=== PATIENT | male | born 1960 | race Caucasian/White ===

== ENCOUNTER 2016-10-19 18:56 | Inpatient (IN) | payer BC, OTHER ==
[~2016-10-19] VITALS: Ht 179.1 cm; Wt 106.7 kg
--- NOTE | 2016-10-19 19:06 | ED.ADGEN ---
Adult General Chief Complaint Chief Complaint " I ve been feeling off.. and I had fever and chills.. up to 101.. Tuesday.. but then I started this severe pain in my right wrist and hand... and my Lt ankle... 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 Patient denies any recent travel.. Has not had previous inflammatory rheumatological problems. Denies any recent trauma to right wrist or left ankle. Pt. does have extensive medical history including history of splenectomy. Patient also has a history of [place] fever. Patient follows with Dr. Martinez as primary care. Review of Systems Review of Systems Constitutional: History of fever or chills [] Eyes: Denies change in visual acuity, redness, or eye pain [] HENT: Denies nasal congestion or sore throat [] Respiratory: Denies cough or shortness of breath [] Cardiovascular: No additional information not addressed in HPI [] GI: Denies abdominal pain, nausea, vomiting, bloody stools or diarrhea [] : Denies dysuria or hematuria [] Musculoskeletal: Complaints of severe right wrist and left ankle pain and edema. Integument: Denies rash or skin lesions [] Neurologic: Denies headache, focal weakness or sensory changes [] Endocrine: Denies polyuria or polydipsia [] Family History Family History Noncontributory Current Medications Current Medications Current Medications Medications (Trade) Dose Ordered Sig/Mey Start Time Stop Time Status Last Admin Dose Admin Ceftriaxone Sodium/Sodium Chloride (Rocephin/Iv Sodium Chloride 0.9% 100ml) 100 ml @ 200 mls/hr 1X ONCE 10/19/16 21:30 10/19/16 21:59 DC 10/19/16 21:51 200 MLS/HR Ceftriaxone Sodium (Rocephin) 2 gm STK-MED ONCE 10/19/16 21:48 10/19/16 21:49 DC Ketorolac Tromethamine 30 mg 30 mg 1X ONCE 10/19/16 19:45 10/19/16 19:46 DC 10/19/16 19:56 30 MG Lactated Ringer's 1,000 ml @ 1,000 mls/hr 1X ONCE 10/19/16 21:15 10/19/16 22:14 DC 10/19/16 21:00 1,000 MLS/HR Lactated Ringer's (Iv Lactated Ringers) 1,000 ml @ 1,000 mls/hr Q1H 10/19/16 19:30 10/19/16 19:57 1,000 MLS/HR Methylprednisolone Sodium Succinate (Solu-Medrol 125mg Vial) 125 mg 1X ONCE 10/19/16 21:30 10/19/16 21:31 DC 10/19/16 21:51 125 MG Morphine Sulfate 5 mg 5 mg 1X ONCE 10/19/16 22:15 10/19/16 22:16 DC 10/19/16 22:41 5 MG Sodium Chloride (Iv Sodium Chloride 0.9% 100ml) 100 ml @ As Directed STK-MED ONCE 10/19/16 21:48 10/19/16 21:49 DC Allergies Allergies Allergies Coded Allergies Type Severity Reaction Last Updated Verified DYLAN Inhibitors Allergy Unknown 10/19/16 Yes meperidine Allergy Unknown 10/19/16 Yes Physical Exam Physical Exam Constitutional: in acute distress, non-toxic appearance. [] HENT: Normocephalic, atraumatic, bilateral external ears normal, oropharynx moist, no oral exudates, nose normal. [] Eyes: PERRLA, EOMI, conjunctiva normal, no discharge. Glasses. Neck: Normal range of motion, no tenderness, supple, no stridor. [] Cardiovascular:Tachycardia Heart rate regular rhythm, no murmur [] Lungs & Thorax: Bilateral breath sounds equal at apexes on auscultation [] Abdomen: Bowel sounds normal, soft, no tenderness, no masses, no pulsatile masses. Old surgery scars. Skin: Warm, dry, no erythema, no rash. [] Back: No tenderness, no CVA tenderness. [] Extremities: Right wrist , Lt. ankle tenderness and edema, no cyanosis, no clubbing, ROM intact, Neurologic: Alert and oriented X 3, normal motor function, normal sensory function, no focal deficits noted. [] Psychologic: Affect normal, judgement normal, mood normal. [] Current Patient Data Vital Signs Vital Signs Date Time Temp Pulse Resp B/P Pulse Ox O2 Delivery O2 Flow Rate FiO2 10/19/16 18:56 97.5 100 18 97 Room Air Lab Results Laboratory Tests Test 10/19/16 19:40 10/19/16 20:40 White Blood Count 16.3x10^3/uL (4.0-11.0) H Red Blood Count 4.68x10^6/uL (4.30-5.70) Hemoglobin 14.9g/dL (13.0-17.5) Hematocrit 45.1% (39.0-53.0) Mean Corpuscular Volume 96fL (79-100) Mean Corpuscular Hemoglobin 32pg (25-35) Mean Corpuscular Hemoglobin Concent 33g/dL (31-37) Red Cell Distribution Width 13.8% (11.5-14.5) Platelet Count 178x10^3/uL (140-400) Neutrophils (%) (Auto) 77% (31-73) H Lymphocytes (%) (Auto) 14% (24-48) L Monocytes (%) (Auto) 8% (0-9) Eosinophils (%) (Auto) 0% (0-3) Basophils (%) (Auto) 1% (0-3) Neutrophils # (Auto) 12.5x10^3uL (1.8-7.7) H Lymphocytes # (Auto) 2.3x10^3/uL (1.0-4.8) Monocytes # (Auto) 1.4x10^3/uL (0.0-1.1) H Eosinophils # (Auto) 0.0x10^3/uL (0.0-0.7) Basophils # (Auto) 0.1x10^3/uL (0.0-0.2) Segmented Neutrophils % 81% (35-66) H Band Neutrophils % 1% (0-9) Lymphocytes % 9% (24-48) L Monocytes % 8% (0-10) Eosinophils % 0% (0-5) Basophils % % (0-3) Blast Cells % (Manual) 1% (0-0) H Nucleated Red Blood Cells 1 Platelet Estimate Adequate (ADEQUATE) Large Platelets Occ Polychromasia Slight Anisocytosis Slight Ovalocytes Occ Crenated Cell Present Erythrocyte Sedimentation Rate 83 (0-15) H Prothrombin Time 11.3SEC (9.4-11.4) Prothrombin Time INR 1.1 (0.9-1.1) PTT 25SEC (23-33) Sodium Level 129mmol/L (136-145) L Potassium Level 3.9mmol/L (3.5-5.1) Chloride Level 94mmol/L (98-107) L Carbon Dioxide Level 24mmol/L (21-32) Anion Gap 11 (6-14) Blood Urea Nitrogen 22mg/dL (8-26) Creatinine 1.2mg/dL (0.7-1.3) Estimated GFR (Cockcroft-Gault) 62.4 Glucose Level 359mg/dL (70-99) H Uric Acid 4.2mg/dL (3.5-7.2) Calcium Level 8.9mg/dL (8.5-10.1) Magnesium Level 1.8mg/dL (1.8-2.4) Total Bilirubin 0.6mg/dL (0.2-1.0) Direct Bilirubin 0.2mg/dL (0.0-0.2) Aspartate Amino Transferase (AST) 34U/L (15-37) Alanine Aminotransferase (ALT) 57U/L (16-63) Alkaline Phosphatase 149U/L (46-116) H Creatine Kinase 20U/L (39-308) L Creatine Kinase MB (Mass) < 0.5ng/mL (0.0-3.6) Creatine Kinase MB Relative Index 2.5% (0-4) Troponin I Quantitative < 0.017ng/mL (0-0.055) C-Reactive Protein 272.4mg/L (0-3.3) H CG-Dlz-L-Type Natriuretic Peptide 592pg/mL (0-124) H Total Protein 9.0g/dL (6.4-8.2) H Albumin 3.0g/dL (3.4-5.0) L Lipase 83U/L (73-393) Urine Collection Type Unknown Urine Color Martha Urine Clarity Clear Urine pH 5.5 Urine Specific Cordell 1.010 Urine Protein 30 mg/dl (NEG-TRACE) Urine Glucose (UA) >=1000mg/dL (NEG) Urine Ketones (Stick) 40mg/dL (NEG) Urine Blood Trace (NEG) Urine Nitrite Neg (NEG) Urine Bilirubin Neg (NEG) Urine Urobilinogen Dipstick 1mg/dL (0.2 mg/dL) Urine Leukocyte Esterase Neg (NEG) Urine RBC 1-2/HPF (0-2) Urine WBC 1-4/HPF (0-4) Urine Squamous Epithelial Cells Occ/LPF Urine Amorphous Sediment Present/HPF Urine Bacteria 0/HPF (0-FEW) Urine Hyaline Casts Occ/HPF Urine Mucus Slight/LPF EKG EKG [] Radiology/Procedures Radiology/Procedures My interpretation of Rt. wrist and Lt. ankle films show degenerative joint changes and edema but no obvious fracture. Course & Med Decision Making Course & Med Decision Making Pertinent Labs and Imaging studies reviewed. (See chart for details). Discussed presentation, testing and treatment plan with , will admit for further eval. and tx. [] Final Impression Final Impression 1. SIRs 2. Leukocytosis 3. Hyponatremia 4. Moderate malnutrition 5. Elevated CRP and Sed. Rate [] 6. DM Problems: Dragon Disclaimer Dragon Disclaimer This electronic medical record was generated, in whole or in part, using a voice recognition dictation system. ANEUDY ZHU MD Oct 19, 2016 19:06
[2016-10-19] MEDS ORDERED: IV RINGERS SOLUTION,LACTATED 1,000 ML IV SCH (19:30)
[2016-10-19] MEDS ORDERED: KETOROLAC 30 MG/ML VIAL. IV ONE (19:45)
[2016-10-19 20:20] LABS: BASO # 0.1 x10^3/uL (0.0-0.2); BASO % 1 % (0-3); EOS % 0 % (0-3); HEMATOCRIT 45.1 % (39.0-53.0); HEMOGLOBIN 14.9 g/dL (13.0-17.5); LYMPH # 2.3 x10^3/uL (1.0-4.8); LYMPH % 14 % (24-48); MEAN CORPUSCULAR HEMOGLOBIN 32 pg (25-35); MEAN CORPUSCULAR HGB CONC 33 g/dL (31-37); MEAN CORPUSCULAR VOLUME 96 fL (79-100); MONO # 1.4 x10^3/uL (0.0-1.1); MONO % 8 % (0-9); NEUT # 12.5 x10^3uL (1.8-7.7); NEUT % 77 % (31-73); PLATELET COUNT 178 x10^3/uL (140-400); RED BLOOD COUNT 4.68 x10^6/uL (4.30-5.70); RED CELL DISTRIBUTION WIDTH 13.8 % (11.5-14.5); WHITE BLOOD COUNT 16.3 x10^3/uL (4.0-11.0)
[2016-10-19 20:49] LABS: ALK PHOS 149 U/L (46-116); ALT (SGPT) 57 U/L (16-63); ANION GAP 11 (6-14); AST (SGOT) 34 U/L (15-37); BLOOD UREA NITROGEN 22 mg/dL (8-26); CALCIUM 8.9 mg/dL (8.5-10.1); CARBON DIOXIDE 24 mmol/L (21-32); CHLORIDE 94 mmol/L (98-107); CREATINE KINASE 20 U/L (39-308); CREATININE 1.2 mg/dL (0.7-1.3); DIRECT BILIRUBIN 0.2 mg/dL (0.0-0.2); GFR 62.4; GLUCOSE 359 mg/dL (70-99); LIPASE 83 U/L (73-393); MAGNESIUM 1.8 mg/dL (1.8-2.4); POTASSIUM 3.9 mmol/L (3.5-5.1); SODIUM 129 mmol/L (136-145); TOTAL BILIRUBIN 0.6 mg/dL (0.2-1.0); URIC ACID 4.6 mg/dL (3.5-7.2)
[2016-10-19] MEDS: IV RINGERS SOLUTION,LACTATED 1,000 ML IV ONE ×2 (20:57→21:00)
[2016-10-19 21:05] LABS: C REACTIVE PROTEIN 272.4 mg/L (0-3.3)
[2016-10-19 21:15] LABS: CLARITY,URINE CLEAR; COLOR,URINE AMBER
[2016-10-19] MEDS ORDERED: IV RINGERS SOLUTION,LACTATED 1,000 ML IV ONE (21:15)
[2016-10-19 21:16] LABS: AMORPHOUS SEDIMENT,UR PRESENT /HPF; BACTERIA,URINE 0 /HPF (0-FEW); BILIRUBIN,URINE NEG (NEG); GLUCOSE,URINE >=1000 mg/dL (NEG); HYALINE CASTS, URINE OCC /HPF; NITRITE,URINE NEG (NEG); SQUAMOUS EPITHELIAL CELL,UR OCC /LPF; UROBILINOGEN,URINE 1 mg/dL (0.2 mg/dL)
[2016-10-19] MEDS ORDERED: CEFTRIAXONE SODIUM 2 GM in IV NORMAL SALINE 100ML 100 ML IV ONE (21:30)
[2016-10-19] MEDS ORDERED: methylPREDNISolone SOD SUCC PF 125 MG/2 ML VIAL. IV ONE (21:30)
[2016-10-19] MEDS ORDERED: CEFTRIAXONE SODIUM 2 GM VIAL IV ONE (21:48)
[2016-10-19] MEDS ORDERED: IV NORMAL SALINE 100ML 100 ML ONE (21:48)
[2016-10-19 22:08] LABS: SEDIMENTATION RATE 83 (0-15)
[2016-10-19] MEDS ORDERED: MORPHINE SULFATE 5 MG/ML SYRINGE. IV ONE (22:15)
[2016-10-19 22:26] LABS: % BLASTS 1 % (0-0); NUCLEATED RBC 1
[2016-10-19 22:27] LABS: % BANDS 1 % (0-9)
[2016-10-19 22:29] LABS: % EOS 0 % (0-5); % SEGS 81 % (35-66)
[2016-10-19] MEDS ORDERED: ONDANSETRON PF 4 MG/2 ML VIAL. IV PRN (22:30)
[2016-10-19 22:31] LABS: % LYMPHS 9 % (24-48)
[2016-10-19 22:32] LABS: % MONOS 8 % (0-10)
[2016-10-19 22:33] LABS: ANISOCYTOSIS SLIGHT; OVALOCYTES OCC; PLT ESTIMATE ADEQUATE (ADEQUATE); POLYCHROMASIA SLIGHT
[2016-10-19] MEDS: IV RINGERS SOLUTION,LACTATED 1,000 ML IV SCH (22:46)
[2016-10-19 23:00] VITALS: BP 122/82
--- NOTE | 2016-10-19 23:00 | NUR ---
Anurag Araya is a 56 y/o male that was admitted through the ER with diagnosis of severe left ankle and right hand pain, possibles SIRS. Received report from CHRISTIN Wei in ER. Patient was assessed, and admission questions completed, reviewed poc with patient and will monitor pt accordingly.
--- NOTE | 2016-10-20 02:01 | ACF ---
Admission Criteria Forms HYPONATREMIA; HYPERNATREMIA; HYPOKALEMIA; HYPERKALEMIA; HYPOCALCEMIA; HYPERCALCEMIA Clinical Indications for Inpatient Care (Place 'X' for any and all applicable criteria): Ongoing inpatient care may be indicated for ANY ONE of the following [G](1)(2)(3 )(5): [X]I. Hyponatremia with ANY ONE of the following: [X]a) Sodium less than 130 mEq/L (mmol/L) (new) (6)(22) [ ]b) Sodium less than 135 mEq/L (mmol/L) with ANY ONE of the following: [ ]i) Severe medical etiology requiring inpatient management (eg, heart failure, hypovolemia) [ ]ii) Altered mental status [ ]iii) Seizures [ ]II. Hypernatremia with ANY ONE of the following: [ ]a) Sodium greater than 155 mEq/L (mmol/L) [ ]b) Sodium greater than 150 mEq/L (mmol/L) with ANY ONE of the following: [ ] i) Altered mental status [ ]ii) Seizures [ ]iii) Severe medical etiology (eg, hypovolemia, diabetes insipidus) [ ]iv) Severe weakness [ ]v) Severe medical etiology (eg, hemolysis, infection, drug overdose) [ ]III. Hypokalemia with ANY ONE of the following: [ ]a) Potassium less than 2.5 mEq/L (mmol/L) despite outpatient and emergency treatment [ ]b) Potassium less than 3.0 mEq/L (mmol/L) with ANY ONE of the following: [ ]i) Weakness [ ]ii) Cardiac abnormality (eg, arrhythmia, conduction disturbance) [ ]iii) Cardiac ischemia [ ]iv) Ileus [ ]v) Ongoing medical cause requiring inpatient management. ( e.g., acute renal wasting, SIADH) [ ]vi) Other severe symptoms [ ] IV. Hyperkalemia with ANY ONE of the following: [ ]a) Potassium greater than 6.5 mEq/L (mmol/L) [ ]b) Potassium greater than 5 mEq/L (mmol/L) with ANY ONE of the following: [ ]i) Severe ECG findings [H] [ ]ii) Acute worsening of renal failure (creatinine greater than 2.5 mg/dL (221 micromoles/L) or significant elevation for age and size) [ ] V. Hypocalcemia with ANY ONE of the following: [ ]a) Calcium less than 7 mg/dL (1.75 mmol/L) despite outpatient and emergency treatment(19) [ ]b) Calcium less than 8 mg/dL (2 mmol/L) with significant symptoms or findings; examples include: [ ]i) Cardiac abnormality (eg, arrhythmia or conduction disturbance) [ ]ii) Altered mental status [ ]iii) Seizures [ ]iv) Breathing difficulty [ ]v) Muscle spasms [ ]. Hypercalcemia with ANY ONE of the following: [ ]a) Calcium greater than 14 mg/dL (3.5 mmol/L) [ ]b) Calcium greater than 12 mg/dL (3 mmol/L) with ANY ONE of the following: [ ]i) Significant dehydration or hypovolemia as indicated by ANY ONE of the following(2): [ ]1. Clinically significant dehydration as indicated by ANY ONE of the following: [ ]A. Acute loss of weight from baseline (5% of body weight in adults, 9% in pediatric patients) [ ]B. Hemodynamic instability [ ]C. Acute renal failure [ ]D. Serum sodium greater than 150 mEq/L (mmol/L) [ ]2) Dehydration that is persistent indicated by ALL of the following: [ ]A. Oral rehydration therapy not tolerated or insufficient to adequately correct dehydration [ ]B. Appropriate intravenous treatment (eg, fluids ) does not readily correct dehydration ie, after 12 to 24 hours of treatment) [ ]ii) Significant symptoms or findings; examples include: [ ]1) Altered mental status [ ]2) Cardiac abnormality (eg, arrhythmia, conduction disturbance) [ ]3) Cardiac abnormality (eg, arrhythmia, conduction disturbance) The original [employer] content created by [employer] has been revised. The portions of the content which have been revised are identified through the use of italic text or in bold, and [facility] [employer] has neither reviewed nor approved the modified material. All other unmodified content is copyright [facility] [employer] Please see references footnoted in the original [facility] [employer] edition 2016 Admission Criteria Met?: Yes DAMIAN NICHOLAS Oct 20, 2016 02:01
[2016-10-20 02:44] VITALS: BP 146/81
[2016-10-20] MEDS: MORPHINE SULFATE 4 MG/ML DISP.SYRIN. IV PRN ×4 (03:20→18:31)
[2016-10-20 06:03] VITALS: BP 117/75
[2016-10-20] MEDS: IV RINGERS SOLUTION,LACTATED 1,000 ML IV SCH ×4 (06:34→17:35)
[2016-10-20 06:42] LABS: BASO % 0 % (0-3); EOS % 0 % (0-3); HEMATOCRIT 40.4 % (39.0-53.0); HEMOGLOBIN 13.5 g/dL (13.0-17.5); LYMPH # 1.6 x10^3/uL (1.0-4.8); LYMPH % 9 % (24-48); MEAN CORPUSCULAR HEMOGLOBIN 32 pg (25-35); MEAN CORPUSCULAR HGB CONC 33 g/dL (31-37); MEAN CORPUSCULAR VOLUME 97 fL (79-100); MONO # 0.4 x10^3/uL (0.0-1.1); MONO % 2 % (0-9); NEUT % 88 % (31-73); PLATELET COUNT 169 x10^3/uL (140-400); RED BLOOD COUNT 4.18 x10^6/uL (4.30-5.70); RED CELL DISTRIBUTION WIDTH 13.8 % (11.5-14.5)
[2016-10-20 06:49] LABS: ALBUMIN 2.4 g/dL (3.4-5.0); ALBUMIN/GLOBULIN RATIO 0.4 (1.0-1.7); CALCIUM 8.5 mg/dL (8.5-10.1); TOTAL BILIRUBIN 0.4 mg/dL (0.2-1.0)
[2016-10-20] MEDS ORDERED: LEVO75TA5 PO (07:14)
[2016-10-20] MEDS ORDERED: OLME20TA PO (07:14)
[2016-10-20] MEDS ORDERED: METH-37 PO (07:15)
[2016-10-20] MEDS ORDERED: TRAM-29 PO (07:16)
[2016-10-20] MEDS ORDERED: METHOCARBAMOL 500 MG TABLET PO PRN (08:15)
[2016-10-20] MEDS ORDERED: DEXTROSE 50% 25 GM / 50ML DISP.SYRIN. IV PRN (08:15)
[2016-10-20] MEDS ORDERED: TRAMADOL 50 MG TABLET. PO PRN (08:15)
[2016-10-20] MEDS ORDERED: IV NORMAL SALINE 250ML 250 ML ONE (08:39)
[2016-10-20] MEDS: INSULIN ASPART 300 UNITS/3 ML INSULN.PEN SQ SCH ×2 (08:55→17:05)
[2016-10-20] MEDS ORDERED: LEVOTHYROXINE 75 MCG TABLET PO SCH (09:00)
[2016-10-20] MEDS ORDERED: LOSARTAN 50 MG TABLET. PO SCH (09:00)
[2016-10-20] MEDS ORDERED: KETOROLAC 30 MG/ML VIAL. IV SCH (09:00)
[2016-10-20] MEDS ORDERED: CEFTRIAXONE SODIUM 2 GM in IV NORMAL SALINE 100ML 100 ML IV SCH (09:00)
[2016-10-20] MEDS ORDERED: methylPREDNISolone SOD SUCC PF 125 MG/2 ML VIAL. IV SCH (09:00)
--- NOTE | 2016-10-20 09:21 | RAD ---
Indication: Atraumatic pain and swelling. Technique: 3 views of the left ankle are submitted for review. No comparison is available. Findings: There is no fracture or dislocation. There is mild diffuse soft tissue swelling. There is a plantar calcaneal spur. Impression: Soft tissue swelling.
--- NOTE | 2016-10-20 09:22 | RAD ---
Indication: Pain and limited range of motion, no known injury. Technique: 3 views of the right hand are submitted for review. No comparison is available. Findings: There are minimal degenerative changes in the interphalangeal joints and at the first metacarpal phalangeal joint. A fracture or dislocation is not identified. There is no soft tissue swelling. Impression: Minimal osteoarthritis.
[2016-10-20 10:56] VITALS: BP 103/65
[2016-10-20] MEDS ORDERED: INSULIN ASPART 300 UNITS/3 ML INSULN.PEN SQ ONE (12:00)
[2016-10-20 14:28] VITALS: BP 121/76
[2016-10-20 17:10] LABS: RHEUMATOID FACTOR 14.2 IU/mL (0.0-13.9)
--- NOTE | 2016-10-20 19:01 | NUR ---
Discharge Note: [facility] Discharge instructions and discharge home medications reviewed with Other facility and a copy given. All questions have been answered and understanding verbalized. The following instructions and handouts were given: SIRS. Discontinued lines and drains: 22G Right AC Peripheral IV remains in place. Patient discharged to [facility] with Ambulance Personnel via [facility]. Belongings with patient.
--- NOTE | 2016-10-20 20:51 | HP ---
ADMIT DATE: 10/20/2016 HISTORY OF PRESENT ILLNESS: The patient is a 56-year-old male patient who came to the Emergency Room complaining of not feeling well, had fevers and chills up to 101.6 on Tuesday, developed severe pain in his right wrist joint, hand and also his left ankle swelling and difficulty using it. The patient has never had similar complaints before. Denied any recent travel or ill contact, has never had any previous inflammatory or rheumatological problems. Denies any recent trauma to the right wrist or left ankle. He has a history of splenectomy and apparently has had before history of [place] spotted fever. He was evaluated in the Emergency Room and was found to have leukocytosis as well as mild hyponatremia, probably dilutional. His inflammatory markers were extremely high with a C-reactive protein of 272 and sedimentation rate was 83 mm per hour. He was continued on his medication and started on the methylprednisolone, IV antibiotic as well as Toradol and Tramadol. PAST MEDICAL HISTORY: Significant for hypertension, hypothyroidism, hyperlipidemia, right frozen shoulder, bilateral meniscus tear. PAST SURGICAL HISTORY: Significant for bilateral arthroscopic knee surgery, splenectomy at age of 14 and appendectomy in 1981. He has a nasal septal deviation repair surgery, surgery on his right frozen shoulder. He underwent liposuction and abdominal wound dehiscence repair about 10 years ago. He underwent also colonoscopy as he has a strong family history of colon cancer. ALLERGIES: HE IS ALLERGIC TO DYLAN INHIBITORS, STATIN, AND DEMEROL. MEDICATIONS: He is currently on following home medications: He is on levothyroxine sodium 75 mcg once a day, methocarbamol 500 mg twice a day, Benicar 20 mg once a day, tramadol 50 mg every 6 hours. FAMILY HISTORY: He has 2 younger brothers who are healthy. His father is alive at age of 85 and has had 2 CVAs and diabetes. Mother is alive at age of 80 and is known to have COPD and hypertension. SOCIAL HISTORY: He is , has no children of his own. He never smoked. He drinks 1-3 drinks per week. He does not use any drugs. He is currently semi-retired. REVIEW OF SYSTEMS: The patient denied any blurring of vision, but has bilateral cataracts that does not require any surgery. He has hearing loss. He has also weight loss that was intentional. Denied any nausea, vomiting, diarrhea or constipation. Denied any hematemesis, melena or hematochezia. Denied any dysuria, frequency or hematuria. Did complain of postvoid dribbling. Denied any chest pain, shortness of breath, orthopnea or paroxysmal nocturnal dyspnea. Denied any cough, phlegm or hemoptysis. Did complain of shaking chills and fever up to 101.6 about 5 days ago. PHYSICAL EXAMINATION: GENERAL: On examining him, he looked well and was clearly in no apparent respiratory distress, no pallor, jaundice, cyanosis, lymphadenopathy or thyromegaly. No jugular venous distention. No lower limb edema. VITAL SIGNS: His heart rate was 100, blood pressure 122/82, temperature was 97.5, respiratory rate was 18 and oxygen saturation was 97%. HEENT: Showed normocephalic, atraumatic. NECK: Supple. HEART: Showed normal first and second heart sounds with no gallop, rub or murmur. CHEST: Clear to auscultation. No crepitation or rhonchi. ABDOMEN: Distended, soft, nontender. No guarding or rigidity. No organomegaly. Hernial orifices intact. Bowel sounds normal. NEUROLOGIC: He is awake, alert, responding appropriately. Cranial nerves intact. EXTREMITIES: He has swelling and marked tenderness in the right hand and right wrist as well as left ankle joint is markedly swollen. SKIN: No rash. NEUROLOGIC: There is no obvious focal weakness or sensory deficit. LABORATORY DATA: On admission showed a white cell count of 16,300, hemoglobin 14.9, hematocrit 45, MCV 96, and platelet count of 178,000. His chemistry showed a serum sodium of 129, potassium 3.9, chloride 94, bicarbonate 24, anion gap of 11, BUN 22, creatinine 1.2, estimated GFR was 62 mL per minute. His glucose was 359. Uric acid was 4.6, calcium was 8.9, magnesium was 1.8. Total bilirubin, AST, ALT, alkaline phosphatase were normal. His CK was high at 149. His C-reactive protein was 272 mg/dL. Beta natriuretic peptide was high at 592. Total protein was 9, albumin 3. His prothrombin time was 11.3, INR 1.1, aPTT was 25. Urinalysis showed the urine was rafal, clear with a pH of 5.5, specific gravity of 1.010. His urine protein was 30 mg/dL. There was large amount of glucose in the blood, positive for ketones, trace of blood, negative for nitrite and leukocyte esterase, there are 1-2 rbc's, 1-4 wbc's, no bacteria. X-ray of the right hand showed there are minimal degenerative changes in the interphalangeal joints. At the first metacarpophalangeal joint, the fracture or dislocation is not identified. There is no soft tissue swelling. He has minimal osteoarthritis and x-ray of his left ankle joint also showed there is no fracture or dislocation. There is mild diffuse soft tissue swelling. There is a plantar calcaneus spur. ASSESSMENT AND PLAN: In summary, this is a 56-year-old male patient who was admitted with fever, shaking chills and leukocytosis as well as marked swelling and pain in his right wrist and right hand as well as left ankle joint. He was treated with steroids. He was given Solu-Medrol. Continue his home medication, anti-inflammatory medication as well as ceftriaxone. My plan is to have a lengthy discussion with him today and my plan is to transfer him to [facility] given that he has splenectomy. I will consult the infectious disease specialist and the development mechanic and would decide on further management accordingly. RADHIKA CORMIER MD DR: JULISSA/po JOB#: [id number] / [id number]
[2016-10-21 22:28] LABS: CYCLIC CITRULLIN PEP AB 54 units (0-19)
[2016-10-22 00:07] LABS: HEMOGLOBIN A1C 11.5 % (4.8-5.6)
[2016-10-22 19:09] LABS: ANA INTERP Negative (.)
== END 2016-10-20 19:00 | disposition short-term general hospital (02) | DRG 864 ==
LOC: ER 18:56 → 1 SOUTH 22:26
PROVIDERS: ADMIT Internal Medicine; ATTEND Internal Medicine
DX: R50.9 Fever, unspecified (principal); E87.1 Hypo-osmolality and hyponatremia; R65.10 Systemic inflammatory response syndrome (SIRS) of non-infectious origin without acute organ dysfunction; E44.0 Moderate protein-calorie malnutrition; M79.89 Other specified soft tissue disorders; E03.9 Hypothyroidism, unspecified; E78.5 Hyperlipidemia, unspecified; J34.2 Deviated nasal septum; M25.531 Pain in right wrist; I10 Essential (primary) hypertension; Z80.0 Family history of malignant neoplasm of digestive organs; Z82.3 Family history of stroke; Z82.49 Family history of ischemic heart disease and other diseases of the circulatory system; Z82.5 Family history of asthma and other chronic lower respiratory diseases; Z83.3 Family history of diabetes mellitus; Z90.81 Acquired absence of spleen; Z88.6 Allergy status to analgesic agent; Z91.09 Other allergy status, other than to drugs and biological substances; Z68.33 Body mass index [BMI] 33.0-33.9, adult
CPT/HCPCS: 36415; 73130; 73610; 80048; 80053; 80061; 80076; 81001; 82553; 82947; 83036; 83605; 83690; 83735; 83880; 84443; 84484; 84550; 85007; 85027; 85610; 85651; 85730; 86140; 86200; 86431; 87040; 96361; 96374; 96375; G0238; J0696; J1815; J1885; J2270; J2930; J7050; J7120; 99285-25

== ENCOUNTER → 2017-02-17 | Outpatient (CLI) | payer OTHER ==
[~2017-02-17] MED LIST: LEVO75TA5 PO; METH-37 PO; OLME20TA19 PO; TRAM-48 PO
[2017-02-18 13:28] LABS: FREE T4 1.5 ng/dL (0.76-1.46); THYROID STIM HORMONE (TSH) 0.415 uIU/mL (0.358-3.740)
== END | disposition home or self-care (01) ==
LOC: LAB 17:11
PROVIDERS: ATTEND Internal Medicine Cardiovascular Disease
DX: R73.9 Hyperglycemia, unspecified (principal); E03.9 Hypothyroidism, unspecified; M19.90 Unspecified osteoarthritis, unspecified site
CPT/HCPCS: 36415; 84439; 84443; 84550

== ENCOUNTER → 2017-02-17 | Outpatient (CLI) | payer OTHER ==
[2017-02-18 05:09] LABS: HEMOGLOBIN A1C 7.2 % (4.8-5.6)
== END | disposition home or self-care (01) ==
LOC: LAB 17:02
PROVIDERS: ATTEND Internal Medicine Cardiovascular Disease
DX: E03.9 Hypothyroidism, unspecified (principal); M19.90 Unspecified osteoarthritis, unspecified site
CPT/HCPCS: 36415; 83036

== ENCOUNTER → 2017-07-27 | Outpatient (CLI) | payer OTHER ==
[2017-07-27 13:37] LABS: ALBUMIN 3.4 g/dL (3.4-5.0); ALBUMIN/GLOBULIN RATIO 0.6 (1.0-1.7); BASO # 0.1 x10^3/uL (0.0-0.2); BASO % 1 % (0-3); CALCIUM 8.8 mg/dL (8.5-10.1); CREATININE 0.9 mg/dL (0.7-1.3); EOS # 0.1 x10^3/uL (0.0-0.7); EOS % 1 % (0-3); GFR 86.7; HEMATOCRIT 43.6 % (39.0-53.0); LYMPH # 4.2 x10^3/uL (1.0-4.8); LYMPH % 42 % (24-48); MEAN CORPUSCULAR HEMOGLOBIN 32 pg (25-35); MEAN CORPUSCULAR HGB CONC 35 g/dL (31-37); MEAN CORPUSCULAR VOLUME 94 fL (79-100); MONO # 0.7 x10^3/uL (0.0-1.1); MONO % 7 % (0-9); NEUT # 4.9 x10^3uL (1.8-7.7); NEUT % 49 % (31-73); PLATELET COUNT 209 x10^3/uL (140-400); POTASSIUM 4.6 mmol/L (3.5-5.1); RED BLOOD COUNT 4.63 x10^6/uL (4.30-5.70); TOTAL BILIRUBIN 0.3 mg/dL (0.2-1.0); TOTAL PROTEIN 8.8 g/dL (6.4-8.2)
[2017-07-28 01:09] LABS: HEMOGLOBIN A1C 6.1 % (4.8-5.6); TESTOSTERONE TOTAL 893 ng/dL (264-916)
[2017-07-28 14:01] LABS: FREE T4 1.13 ng/dL (0.76-1.46); THYROID STIM HORMONE (TSH) 0.565 uIU/mL (0.358-3.740)
== END | disposition home or self-care (01) ==
LOC: LAB 11:50
PROVIDERS: ATTEND Family Medicine
DX: E11.65 Type 2 diabetes mellitus with hyperglycemia (principal); E03.9 Hypothyroidism, unspecified
CPT/HCPCS: 36415; 80053; 80061; 83036; 84403; 84439; 84443; 85025

== ENCOUNTER → 2017-10-25 | Outpatient (CLI) | payer OTHER ==
[~2017-10-25] MED LIST changes: +OLME20TA17 PO; -OLME20TA19 PO
== END | disposition home or self-care (01) ==
LOC: LAB 15:16
PROVIDERS: ATTEND Family Medicine
DX: R77.1 Abnormality of globulin (principal)
CPT/HCPCS: 36415

== ENCOUNTER → 2018-02-13 | Outpatient (CLI) | payer OTHER ==
[2018-02-14 04:12] LABS: HEMOGLOBIN A1C 6.1 % (4.8-5.6)
== END | disposition home or self-care (01) ==
LOC: LAB 13:56
PROVIDERS: ATTEND Family Medicine
DX: E11.9 Type 2 diabetes mellitus without complications (principal); I10 Essential (primary) hypertension; E03.9 Hypothyroidism, unspecified; E78.2 Mixed hyperlipidemia
CPT/HCPCS: 36415; 83036

== ENCOUNTER → 2018-11-14 | Outpatient (CLI) | payer OTHER ==
[~2018-11-14] MED LIST changes: +ASPI-630 PO; +CLOP75TA57 PO; +FURO-68 PO; +FURO20TA3 PO; +INSU100I13 SQ; +LEVO150T5 PO; +METF10007 PO; +METO25TA4 PO; +MULT-245 PO; +NITR0.4T22 SL; +SACU1TAB PO; +SOTA80TA48 PO; +SPIR25TA5 PO
--- NOTE | 2018-11-14 10:20 | CARD ---
MR#: [id number] Date of Study: 11/14/2018 Ordering Physician: CLARITA POWELL, Referring Physician: CLARITA POWELL, Tech: Mary Smart LAURA APPROVED REPORT EXAM: Two-dimensional and M-mode echocardiogram with Doppler and color Doppler. Other Information Quality : AverageHR: 85bpm Rhythm : Other INDICATION CAD 2D DIMENSIONS RVDd3.7 (2.9-3.5cm)Left Atrium(2D)5.1 (1.6-4.0cm) IVSd0.8 (0.7-1.1cm)Aortic Root(2D)3.2 (2.0-3.7cm) LVDd6.1 (3.9-5.9cm)LVOT Diameter2.1 (1.8-2.4cm) PWd0.9 (0.7-1.1cm)LVDs4.9 (2.5-4.0cm) FS (%) 20.7 %SV78.6 ml LVEF(%)41.4 (>50%) M-Mode DIMENSIONS Left Atrium(MM)4.45 (2.5-4.0cm)IVSd0.87 (0.7-1.1cm) Aortic Root3.44 (2.2-3.7cm)LVDd6.45 (4.0-5.6cm) PWd1.09 (0.7-1.1cm)FS (%) 23 % LVDs4.96 (2.0-3.8cm)ESV(Teich)116.3 ml LVEF(%)45 (>50%) Aortic Valve AoV Peak Neri.81.4cm/sAoV VTI13.3cm AO Peak GR.2.7mmHgLVOT Peak Neri.64.4cm/s LVOT VTI 10.01cmAO Mean GR.1mmHg OXANA (VMAX)2.21wk3TSB (VTI)2.66cm2 Mitral Valve MV E Bpwynhzv606.8cm/sMV E Peak Gr.10mmHg MV DECEL [id number] A Fqhvjlvn62.9cm/s MV E Mean Gr.3mmHgE/A Ratio4.6 Pulmonary Valve PV Peak Vxhmaqjj89.2cm/sPV Peak Grad.2mmHg Tricuspid Valve TR P. Dgvcyfkd647rg/sRAP [id number] TR Peak Gr.78bzYzNCBD83cmCz LEFT VENTRICLE The Left Ventricle is mildly dilated. There is normal left ventricular wall thickness. The ejection f raction is severely impaired. EF 30-35% The septum, apex and distal inferior wall are akinetic. Moder ate global hypokinesis otherwise. Transmitral Doppler flow pattern is abnormal. RIGHT VENTRICLE The right ventricle is mildly dilated. There is normal right ventricular wall thickness. The right ve ntricular systolic function is normal. ATRIA The left atrium is moderately dilated. The right atrium is moderately dilated. The interatrial septum is intact with no evidence for an atrial septal defect or patent foramen ovale as noted on 2-D or Do ppler imaging. AORTIC VALVE The aortic valve is trileaflet. The aortic valve is normal in structure and function. Doppler and Col or Flow revealed no significant aortic regurgitation. There is no significant aortic valvular stenosi s. There is no aortic valvular vegetation. MITRAL VALVE The mitral valve is thickened but opens well. There is no evidence of mitral valve prolapse. There is no mitral valve stenosis. Doppler and Color-flow revealed severe mitral regurgitation. TRICUSPID VALVE The tricuspid valve is normal in structure and function. Doppler and Color Flow revealed mild tricusp id regurgitation. There is moderate pulmonary hypertension. The PA pressure was estimated at 41 mmHg. There is no tricuspid valve prolapse or vegetation. There is no tricuspid valve stenosis. PULMONIC VALVE The pulmonary valve is normal in structure and function. Doppler and Color Flow revealed trace pulmon ic valvular regurgitation. There is no pulmonic valvular stenosis. GREAT VESSELS The aortic root is normal in size. The ascending aorta is normal in size. Mild pulmonary artery dilat ion. The IVC is dilated. PERICARDIAL EFFUSION There is no evidence of significant pericardial effusion. Critical Notification Critical Value: No <Conclusion> The ejection fraction is severely impaired. EF 30-35% The septum, apex and distal inferior wall are akinetic. Moderate global hypokinesis otherwise. Doppler and Color-flow revealed severe mitral regurgitation. Doppler and Color Flow revealed mild tricuspid regurgitation. There is moderate pulmonary hypertensio n. The PA pressure was estimated at 41 mmHg. Signed by : Clarita Powell, Electronically Approved : 11/14/2018 10:19:36
== END | disposition home or self-care (01) ==
LOC: ECHO 09:06
PROVIDERS: ATTEND Internal Medicine Cardiovascular Disease
DX: I08.1 Rheumatic disorders of both mitral and tricuspid valves (principal); I27.20 Pulmonary hypertension, unspecified; I25.10 Atherosclerotic heart disease of native coronary artery without angina pectoris
CPT/HCPCS: 93306

== ENCOUNTER 2018-11-29 16:58 | Inpatient (IN) | payer OTHER ==
[~2018-11-29] VITALS: Ht 179.1 cm; Wt 112.9 kg
[~2018-11-29 16:58] MED LIST changes: -ASPI-630 PO; -CLOP75TA57 PO; -FURO-68 PO; -FURO20TA3 PO; -INSU100I13 SQ; -LEVO150T5 PO; -METF10007 PO; -METO25TA4 PO; -MULT-245 PO; -NITR0.4T22 SL; -SACU1TAB PO; -SOTA80TA48 PO; -SPIR25TA5 PO
--- NOTE | 2018-11-29 18:57 | PDOC ---
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 He was seen earlier in the day in the office for a routine follow-up. He had an anterior ST elevation myocardial infarction approximately 4 months ago. Since then he has been having exertional dyspnea to point where he is having to stop after walking approximately 50-100 feet. He has had severe limitations at work. He has reported significant lower extremity edema. He has not had any syncope but does have orthopnea and PND. He does not have any significant palpitations but does feel his heart racing when he is also having shortness of breath with minimal activity. Today we discussed that his outpatient diuretic regimen has not adequately kept him euvolemic and since he started taking Lasix up to 80 mg daily without any significant improvement I discussed with him that admission to the hospital would be appropriate Past medical history 1. Ischemic cardio myopathy status post PCI to the LAD in 2017 2. Severe mitral regurgitation by echocardiogram in November 2018 with ejection fraction of 35% 3. Prior history of ventricular fibrillation and cardiac arrest during the episode of ST elevation microinfarction 4. Dyslipidemia 5. Hypertension Current cardiovascular medications are as follows: 1. Aspirin 81 mg daily 2. Plavix 75 g daily 3. Lasix 40 mg twice a day 4. 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 He denies any alcohol, tobacco or illicit drug use. Family history noncontributory Review systems as noted above in history of present illness. Physical examination Vital signs: Weight 296 pounds, blood pressure 116/60, heart rate 83, afebrile, 99% on room air General he is alert and oriented no acute distress Head and neck exam reveals elevated neck veins Lung sounds are notable for decreased breath sounds at the bases with rales in the left lower lung pedroza Heart tones are distant but regular Abdomen is protrudent obese nontender with anasarca Lower ext are notable for 4+ pitting edema up to the knees No focal neurologic deficits noted. Labs, EKG pending. Impression: 1. Acute on chronic decompensated systolic and diastolic heart failure 2. Severe mitral regurgitation 3. Ischemic cardio myopathy with ejection fraction of 30-35% Recommendations: 1. Initiate metoprolol 12.5 g by mouth every 6 hours 2. Lasix 40 mg IV push and re-dose as needed to help achieve a goal diuresis of approximately 2 L over the next 12-24 hours. 3. We will stop his sotalol and continue aspirin and Plavix and repeat lipid panel and determine need for initiation of PCS K-9 inhibitors. 4. Will plan for initiation of Entresto and spironolactone after laboratory studies are available. Supportive care for now. CLARITA POWELL MD Nov 29, 2018 18:57
[2018-11-29 19:00] VITALS: BP 156/91
[2018-11-29 19:35] LABS: BASO # 0.1 x10^3/uL (0.0-0.2); BASO % 1 % (0-3); EOS # 0.2 x10^3/uL (0.0-0.7); EOS % 2 % (0-3); HEMATOCRIT 43.8 % (39.0-53.0); HEMOGLOBIN 14.7 g/dL (13.0-17.5); LYMPH # 2.8 x10^3/uL (1.0-4.8); LYMPH % 36 % (24-48); MEAN CORPUSCULAR HEMOGLOBIN 33 pg (25-35); MEAN CORPUSCULAR HGB CONC 34 g/dL (31-37); MEAN CORPUSCULAR VOLUME 97 fL (79-100); MONO # 0.8 x10^3/uL (0.0-1.1); MONO % 10 % (0-9); NEUT % 51 % (31-73); PLATELET COUNT 181 x10^3/uL (140-400); RED BLOOD COUNT 4.53 x10^6/uL (4.30-5.70); RED CELL DISTRIBUTION WIDTH 16.6 % (11.5-14.5); WHITE BLOOD COUNT 7.9 x10^3/uL (4.0-11.0)
[2018-11-29 19:45] VITALS: BP 110/77
[2018-11-29 19:57] LABS: ALBUMIN 3.3 g/dL (3.4-5.0); ALBUMIN/GLOBULIN RATIO 0.7 (1.0-1.7); CALCIUM 8.5 mg/dL (8.5-10.1); CREATININE 1.2 mg/dL (0.7-1.3); POTASSIUM 4.1 mmol/L (3.5-5.1); TOTAL BILIRUBIN 1.2 mg/dL (0.2-1.0); TOTAL PROTEIN 7.8 g/dL (6.4-8.2)
[2018-11-29] MEDS ORDERED: FUROSEMIDE 40 MG/4 ML VIAL IVP ONE (20:00)
--- NOTE | 2018-11-29 20:45 | EKG ---
[address] [address] Test Date: 2018-11-29 Test Time: 20:40:43 Pat Name: JESSE JOHN Department: Room: [facility] 1 Gender: M [employer]er [employer] Assembler: MARY : 1960 Requested By: RADHIKA CORMIER Order Number: [id number] Reading MD: Steve Waddell Measurements Intervals [place] Rate: 72 P: 66 LA: 188 QRS: 65 QRSD: 76 T: 83 QT: 460 QTc: 505 Interpretive Statements SINUS RHYTHM LEFT ATRIAL ABNORMALITY LOW LIMB LEAD VOLTAGE QRS(T) CONTOUR ABNORMALITY CONSISTENT WITH ANTEROSEPTAL INFARCT AGE UNDETERMINED Electronically Signed On 12-06-2018 11:43:57 CDT by Steve aWddell
[2018-11-29] MEDS ORDERED: NITR0.4T22 SL (21:30)
[2018-11-29] MEDS ORDERED: METF10007 PO (21:30)
[2018-11-29] MEDS ORDERED: SOTA80TA48 PO (21:30)
[2018-11-29] MEDS ORDERED: LEVO150T5 PO (21:30)
[2018-11-29] MEDS ORDERED: INSU100I13 SQ (21:30)
[2018-11-29] MEDS ORDERED: ASPI-630 PO (21:30)
[2018-11-29] MEDS ORDERED: CLOP75TA57 PO (21:30)
[2018-11-29] MEDS ORDERED: MULT-245 PO (21:30)
[2018-11-29] MEDS ORDERED: FURO-68 PO ×2 (21:30)
--- NOTE | 2018-11-29 21:33 | RAD ---
CHEST PA LATERAL Technique: PA and lateral views of the chest were obtained. Clinical History: CHF, ADMITTING WANTS READ DOROTHY PLEASE
HX HEART ATTACK 06/2018 Comparison: April 30, 2018. Findings: The heart is mildly enlarged. The pulmonary vessels appear normal. There is patchy opacity in the left lung base and obscuration of the left hemidiaphragm and blunting of the right costophrenic angle. Impression: 1. Mild cardiomegaly. 2. Mild CHF with mild pleural effusions. Electronically signed by: Asad Rahman III, MD (11/29/2018 9:30 PM) [facility]
[2018-11-29 22:15] VITALS: BP 117/77
[2018-11-29] MEDS: MILRINONE 20MG/100ML PREMIX 100 ML IV PRN (22:25)
[2018-11-29 22:30] VITALS: BP 125/81
[2018-11-29 23:09] VITALS: BP 106/65
[2018-11-30] VITALS (19 sets, daily range): BP systolic 92–124; BP diastolic 56–87
[2018-11-30] MEDS: METOPROLOL TART IMMED RELEASE 25 MG TABLET PO SCH ×4 (00:01→18:13)
[2018-11-30 06:26] LABS: CALCIUM 8.4 mg/dL (8.5-10.1); CREATININE 1.1 mg/dL (0.7-1.3); GFR 68.5; POTASSIUM 3.1 mmol/L (3.5-5.1)
[2018-11-30] MEDS ORDERED: POTASSIUM CHLORIDE 20 MEQ TABLET.ER. PO ONE ×3 (07:30→18:00)
[2018-11-30] MEDS: CLOPIDOGREL BISULFATE 75 MG TABLET PO SCH (08:36)
[2018-11-30] MEDS: metFORMIN 500 MG TABLET PO SCH ×2 (08:37→17:31)
[2018-11-30] MEDS: INSULIN GLARGINE 300 UNITS/3 ML INSULN.PEN. SQ SCH (08:49)
[2018-11-30] MEDS: MILRINONE 20MG/100ML PREMIX 100 ML IV PRN (11:41)
[2018-11-30] MEDS ORDERED: FUROSEMIDE 40 MG/4 ML VIAL IVP ONE ×2 (12:15→15:45)
[2018-11-30] MEDS ORDERED: ASPIRIN ENTERIC COATED 81 MG TABLET.DR. PO ONE (15:45)
[2018-11-30] MEDS ORDERED: metOLazone 5 MG TABLET PO SCH (15:45)
--- NOTE | 2018-11-30 15:49 | PDOC ---
PROVIDER NOTE PROVIDER NOTE PROVIDER NOTE S: No issues overnight. O: VSS LE edema is persistent. Lungs improved. Tele - occ PVC's Labs reviewed. Meds reviewed. Impression: 1. Acute on chronic decompensated HF with severe MR 2. CAD 3. Dyslipidemia - intolerance to statins. Plan: 1. Continue milrinone till tomorrow a.m 2. Will start spironolactone and entresto in a.m. 3. Monitor lytes closely 4. Metolazone and lasix today if not negative by end of shift. Supportive care. Anticipate DC on tuesday. CLARITA POWELL MD Nov 30, 2018 15:49
[2018-11-30 16:38] LABS: CALCIUM 8.9 mg/dL (8.5-10.1); GFR 76.5; POTASSIUM 3.7 mmol/L (3.5-5.1)
--- NOTE | 2018-11-30 18:21 | HP ---
ADMIT DATE: 11/29/2018 HISTORY OF PRESENT ILLNESS: The patient is a 58-year-old male patient, who was admitted directly from the Cardiology Clinic for acute decompensated heart failure. He apparently had had anterior ST segment elevation myocardial infarction approximately 4 months ago. Since then, he has been having exertional dyspnea to the point where he is having to stop after walking approximately 50-100 feet, has had severe limitation at work. He has reported significant lower extremity edema. He has not had any syncope, but does have orthopnea and paroxysmal nocturnal dyspnea. Does not have any additional palpitation, but does feel his heart racing when he is also having shortness of breath with minimal activity and therefore, he was admitted for inpatient treatment with IV Lasix. 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 PAST MEDICAL HISTORY: Significant for ischemic cardiomyopathy, status post PCI with stent deployment to left anterior descending artery in 2018, has severe mitral regurgitation by echocardiogram in 11/2018 with ejection fraction of 35%. He has prior history of ventricular fibrillation and cardiac arrest during an episode of ST elevation like myocardial infarction, dyslipidemia, hypertension. He is also known to have hypertension and hypothyroidism, right frozen shoulder and bilateral meniscus tear. 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 He has a nasal septal deviation repair surgery, surgery on his right frozen shoulder. He underwent liposuction, abdominal wound dehiscence repair about 10 years ago and underwent also colonoscopy and as he has a strong family history of colon cancer, most recently has had a PCI and stent deployment to the left anterior descending artery. ALLERGIES: HE IS ALLERGIC TO DYLAN INHIBITORS, STATIN, AND DEMEROL. MEDICATIONS: He was on following medications: He is on Plavix 75 mg once a day, nitroglycerin 0.4 mg sublingually every 5 minutes, sotalol 80 mg twice a day, aspirin 81 mg daily, furosemide 40 mg p.o. daily, furosemide 40 mg as needed, metformin 1000 mg p.o. b.i.d. He is on Lantus insulin 48 units subcutaneously daily before breakfast, levothyroxine sodium 150 mcg daily, multivitamin 1 tablet once a day. FAMILY HISTORY: He has 2 younger brothers who are healthy. His father is alive. His family history is basically positive for CVA, diabetes, COPD and hypertension. SOCIAL HISTORY: He is , has no children of his own. He never smoked. He drinks 1-3 drinks per week. He does not use any drugs. REVIEW OF SYSTEMS: The patient denied any blurring of vision, but has bilateral cataracts that does not require any surgery. He has hearing loss. He has actually weight gain. Marked bilateral lower limb edema. Denied any nausea, vomiting, diarrhea or constipation. Denied any hematemesis, melena or hematochezia. Denied any dysuria, frequency or hematuria. Denied any chest pain. Did complain of shortness of breath, orthopnea, paroxysmal nocturnal dyspnea. PHYSICAL EXAMINATION: GENERAL: On arrival to the hospital, he looked well and was clearly in no apparent respiratory distress. No pallor, jaundice, cyanosis or thyromegaly. No jugular venous distension. No lower limb edema. VITAL SIGNS: His heart rate was 76, blood pressure 156/91, temperature was 98.5, respiratory rate was 20, and oxygen saturation was 96% on room air. HEAD, EYES, EARS, NOSE AND THROAT: Showed he is normocephalic, atraumatic. NECK: Supple. HEART: Showed normal first and second heart sounds. No gallop, rub or murmur. CHEST: Clear to auscultation. No crepitation or rhonchi. ABDOMEN: Distended, soft, nontender. NEUROLOGIC: He is awake, alert, responding appropriately. All cranial nerves are intact. EXTREMITIES: He moves extremities without difficulty, ambulates without assistance or assistive devices. LABORATORY DATA: On admission showed a white cell count 7900, hemoglobin 14.7, hematocrit 44, MCV 97 and platelet count of 181,000 with normal manual differential. His blood gases showed a pH of 7.41, pCO2 of 41, pO2 of 32, bicarbonate 26 and oxygen saturation was 63% on FIO2 of 21%. His serum sodium was 141, potassium 4.1, chloride 105, bicarbonate 25, anion gap of 11, BUN 25, creatinine 1.2. Estimated GFR was 62 mL per minute, his glucose 106, calcium was 8.5. Total bilirubin, AST, ALT, alkaline phosphatase were normal. His beta natriuretic peptide was 5477. His total protein was 7.8, albumin was 3.3. ASSESSMENT AND PLAN: The patient was admitted with an acute decompensated heart failure. He has ischemic cardiomyopathy, status post PCI with stent deployment to left anterior descending, severe mitral regurgitation, prior history of ventricular fibrillation and cardiac arrest during episode of ST elevation myocardial infarction. Other medical problems include dyslipidemia, hypertension and hypothyroidism. The plan is to hold his sotalol. Continue with Lasix, aspirin, Plavix, daily weight. RADHIKA CORMIER MD DR: JULISSA/po JOB#: [id number] / [id number]
[2018-11-30] MEDS: SACUBITRIL/VALSARTAN 24/26MG TABLET. PO SCH (21:13)
[2018-11-30 22:08] LABS: HEMOGLOBIN A1C 6.5 % (4.8-5.6)
--- NOTE | 2018-11-30 23:41 | PN ---
DATE: 11/30/2018 SUBJECTIVE: The patient is sitting comfortably in his chair, in no apparent distress. He is feeling slightly better. His bilateral lower extremity edema is much better. PHYSICAL EXAMINATION: GENERAL: When I examined him, he looked well and was clearly in no apparent respiratory distress. No pallor, jaundice, cyanosis, or thyromegaly. No jugular venous distension. No lower limb edema. VITAL SIGNS: His heart rate was 88, blood pressure 117/82, temperature was 97.4, respiratory rate was 15 and oxygen saturation was 99% on room air. HEAD, EYES, EARS, NOSE AND THROAT: Showed normocephalic, atraumatic. NECK: Supple. HEART: Showed normal first and second heart sounds. No gallop, rub or murmur. CHEST: Clear to auscultation. No crepitation or rhonchi. ABDOMEN: Distended, soft, nontender. No guarding or rigidity. No organomegaly. All hernial orifice intact. Bowel sounds are normal. NEUROLOGIC: He was awake, alert, responding appropriately. Extraocular movements are intact. He moves extremities without difficulty. His intake was 485, output was 3375. LABORATORY DATA: This morning showed his serum sodium was 142, potassium was 3.1, chloride 105, bicarbonate 28, anion gap of 9, BUN 21, creatinine 1.1. Estimated GFR was 68 mL per minute. His glucose 120. Calcium was 8.7. His fasting lipid profile showed triglycerides to be 81. Total cholesterol was 106, LDL cholesterol was 69, VLDL was 16, HDL was 71, ratio was 5. ASSESSMENT: Acute on chronic decompensated congestive heart failure with severe mitral regurgitation, coronary artery disease, dyslipidemia. PLAN: To continue with milrinone drip. He will restart spironolactone and he was started on spironolactone, Entresto and metolazone and Lasix as needed. We will monitor his lab works again tomorrow and decide on further management accordingly. RADHIKA CORMIER MD DR: JULISSA/po JOB#: [id number] / [id number]
[2018-12-01] VITALS (7 sets, daily range): BP systolic 93–126; BP diastolic 58–80
[2018-12-01] MEDS: METOPROLOL TART IMMED RELEASE 25 MG TABLET PO SCH ×5 (00:14→23:23)
[2018-12-01 07:51] LABS: CALCIUM 8.9 mg/dL (8.5-10.1); CREATININE 1.1 mg/dL (0.7-1.3); GFR 68.5; MAGNESIUM 1.9 mg/dL (1.8-2.4); POTASSIUM 3.7 mmol/L (3.5-5.1)
[2018-12-01] MEDS: SACUBITRIL/VALSARTAN 24/26MG TABLET. PO SCH ×2 (07:57→20:38)
[2018-12-01] MEDS: metFORMIN 500 MG TABLET PO SCH ×2 (07:57→17:29)
[2018-12-01] MEDS: CLOPIDOGREL BISULFATE 75 MG TABLET PO SCH (07:57)
[2018-12-01] MEDS: SPIRONOLACTONE 25 MG TABLET PO SCH (08:12)
[2018-12-01] MEDS: FUROSEMIDE 40 MG TABLET PO SCH (08:12)
[2018-12-01] MEDS ORDERED: POTASSIUM CHLORIDE 20 MEQ TABLET.ER. PO ONE (08:15)
[2018-12-01] MEDS: INSULIN GLARGINE 300 UNITS/3 ML INSULN.PEN. SQ SCH (09:50)
--- NOTE | 2018-12-01 14:51 | PDOC ---
PROGRESS NOTES Assessment 1. Acute on chronic systolic heart failure. LVEF 30-35% on last 2-D echocardiogram. He diuresed well with milrinone for inotropic support and Lasix/metolazone for diuretics. Symptoms and edema have improved significantly. Stop milrinone infusion and metolazone and continue Lasix, spironolactone and entresto. 2. Severe mitral regurgitation: Plan outpatient evaluation for MVR/clipping procedure 3. CAD s/p PCI/stent to LAD stable and chest pain-free. Continue current secondary prevention measures. 3. Dyslipidemia - intolerance to statins. Possible DC home tomorrow. Subjective Feeling significantly better with improvement in Dyspnea and edema Objective Vital Signs Date Time Temp Pulse Resp B/P (MAP) Pulse Ox O2 Delivery O2 Flow Rate FiO2 12/01/18 12:25 84 12/01/18 11:00 Room Air 12/01/18 08:00 20 126/70 (88) 96 12/01/18 05:45 97.4 Intake and Output 12/01/18 07:00 Intake Total 2024 ml Output Total 5450 ml Balance -3426 ml Intake Oral 1855 ml IV Total 169 ml Output Urine Total 5450 ml # Bowel Movements 1 Abdomen: Soft, No tenderness Heart: Regular rate Extremities: Other (trace edema) General: Alert, Oriented X3 HEENT: Atraumatic Lungs: Clear to auscultation Neck: Supple Neuro: Normal speech Psych/Mental Status: Mental status NL Review of Relevant I have reviewed the following items donavan (where applicable) has been applied. Labs Laboratory Tests Test 11/29/18 19:15 11/29/18 20:00 11/30/18 05:35 11/30/18 15:25 White Blood Count 7.9 x10^3/uL (4.0-11.0) Red Blood Count 4.53 x10^6/uL (4.30-5.70) Hemoglobin 14.7 g/dL (13.0-17.5) Hematocrit 43.8 % (39.0-53.0) Mean Corpuscular Volume 97 fL (79-100) Mean Corpuscular Hemoglobin 33 pg (25-35) Mean Corpuscular Hemoglobin Concent 34 g/dL (31-37) Red Cell Distribution Width 16.6 % (11.5-14.5) Platelet Count 181 x10^3/uL (140-400) Neutrophils (%) (Auto) 51 % (31-73) Lymphocytes (%) (Auto) 36 % (24-48) Monocytes (%) (Auto) 10 % (0-9) Eosinophils (%) (Auto) 2 % (0-3) Basophils (%) (Auto) 1 % (0-3) Neutrophils # (Auto) 4.0 x10^3uL (1.8-7.7) Lymphocytes # (Auto) 2.8 x10^3/uL (1.0-4.8) Monocytes # (Auto) 0.8 x10^3/uL (0.0-1.1) Eosinophils # (Auto) 0.2 x10^3/uL (0.0-0.7) Basophils # (Auto) 0.1 x10^3/uL (0.0-0.2) Nasal Screen MRSA (PCR) Negative (Negative) Sodium Level 141 mmol/L (136-145) 142 mmol/L (136-145) 141 mmol/L (136-145) Potassium Level 4.1 mmol/L (3.5-5.1) 3.1 mmol/L (3.5-5.1) 3.7 mmol/L (3.5-5.1) Chloride Level 105 mmol/L (98-107) 105 mmol/L (98-107) 102 mmol/L (98-107) Carbon Dioxide Level 25 mmol/L (21-32) 28 mmol/L (21-32) 30 mmol/L (21-32) Anion Gap 11 (6-14) 9 (6-14) 9 (6-14) Blood Urea Nitrogen 25 mg/dL (8-26) 21 mg/dL (8-26) 18 mg/dL (8-26) Creatinine 1.2 mg/dL (0.7-1.3) 1.1 mg/dL (0.7-1.3) 1.0 mg/dL (0.7-1.3) Estimated GFR (Cockcroft-Gault) 62.0 68.5 76.5 BUN/Creatinine Ratio 21 (6-20) Glucose Level 106 mg/dL (70-99) 120 mg/dL (70-99) 136 mg/dL (70-99) Hemoglobin A1c 6.5 % (4.8-5.6) Calcium Level 8.5 mg/dL (8.5-10.1) 8.4 mg/dL (8.5-10.1) 8.9 mg/dL (8.5-10.1) Total Bilirubin 1.2 mg/dL (0.2-1.0) Aspartate Amino Transf (AST/SGOT) 34 U/L (15-37) Alanine Aminotransferase (ALT/SGPT) 29 U/L (16-63) Alkaline Phosphatase 71 U/L (46-116) CE-Sfb-U-Type Natriuretic Peptide 5477 pg/mL (0-124) Total Protein 7.8 g/dL (6.4-8.2) Albumin 3.3 g/dL (3.4-5.0) Albumin/Globulin Ratio 0.7 (1.0-1.7) Bedside Venous pH 7.41 (7.32-7.42) Bedside Venous pCO2 41 mmHg (41-51) Bedside Venous pO2 32 mmHg (20-40) Venous Blood HCO3 26 mmol/L (24-28) POC Venous O2 Saturation (Dylon) 63 % Bedside FiO2 21 Triglycerides Level 81 mg/dL (0-150) Cholesterol Level 106 mg/dL (0-200) LDL Cholesterol, Calculated 69 mg/dL (0-100) VLDL Cholesterol, Calculated 16 mg/dL (0-40) Non-HDL Cholesterol Calculated 85 mg/dL (0-129) HDL Cholesterol 21 mg/dL (40-60) Cholesterol/HDL Ratio 5.0 Test 12/01/18 05:33 12/01/18 07:47 Sodium Level 140 mmol/L (136-145) Potassium Level 3.7 mmol/L (3.5-5.1) Chloride Level 103 mmol/L (98-107) Carbon Dioxide Level 29 mmol/L (21-32) Anion Gap 8 (6-14) Blood Urea Nitrogen 18 mg/dL (8-26) Creatinine 1.1 mg/dL (0.7-1.3) Estimated GFR (Cockcroft-Gault) 68.5 Glucose Level 103 mg/dL (70-99) Calcium Level 8.9 mg/dL (8.5-10.1) Magnesium Level 1.9 mg/dL (1.8-2.4) Glucose (Fingerstick) 116 mg/dL (70-99) Medications Current Medications Metoprolol Tartrate (Lopressor) 12.5 mg Q6HRS PO Last administered on 12/01/18 12:25; Start 11/30/18 at 00:00 Furosemide (Lasix) 40 mg 1X ONCE IVP Last administered on 11/29/18 20:35; Start 11/29/18 at 20:00; Stop 11/29/18 at 20:01; Status DC Metformin HCl (Glucophage) 1,000 mg BIDWMEALS PO Last administered on 12/01/18 07:57; Start 11/30/18 at 08:00 Insulin Glargine (Lantus) 48 units DAILY SQ Last administered on 12/01/18 09:50; Start 11/30/18 at 09:00 Milrinone Lactate/ Dextrose 100 ml @ 13.676 mls/ hr CONT PRN IV SEE I/O RECORD Last administered on 11/30/18at 11:41; Start 11/29/18 at 22:00 Clopidogrel Bisulfate (Plavix) 75 mg DAILYWBKFT PO Last administered on 12/01/18 07:57; Start 11/30/18 at 08:00 Potassium Chloride (Klor-Con) 40 meq 1X ONCE PO Last administered on 11/30/18 08:37; Start 11/30/18 at 07:30; Stop 11/30/18 at 07:32; Status DC Potassium Chloride (Klor-Con) 40 meq 1X ONCE PO Last administered on 11/30/18 08:37; Start 11/30/18 at 08:30; Stop 11/30/18 at 08:38; Status DC Furosemide (Lasix) 40 mg 1X ONCE IVP Last administered on 11/30/18 12:44; Start 11/30/18 at 12:15; Stop 11/30/18 at 12:16; Status DC Aspirin (Aspirin Enteric Coated) 81 mg 1X ONCE PO Last administered on 11/30/18 17:31; Start 11/30/18 at 15:45; Stop 11/30/18 at 15:46; Status DC Metolazone (Zaroxolyn) 5 mg DAILY PO Last administered on 11/30/18 17:30; Start 11/30/18 at 15:45; Stop 12/01/18 at 08:07; Status DC Furosemide (Lasix) 40 mg 1X ONCE IVP Last administered on 11/30/18at 18:10; Start 11/30/18 at 15:45; Stop 11/30/18 at 15:51; Status DC Spironolactone (Aldactone) 25 mg DAILY PO Last administered on 12/01/18at 08:12; Start 12/01/18 at 09:00 Sacubitril/ Valsartan (Entresto 24 Mg-26 Mg) 1 tab BID PO Last administered on 12/01/18at 07:57; Start 11/30/18 at 21:00 Potassium Chloride (Klor-Con) 40 meq 1X ONCE PO Last administered on 11/30/18at 18:11; Start 11/30/18 at 18:00; Stop 11/30/18 at 18:01; Status DC Furosemide (Lasix) 40 mg DAILY PO Last administered on 12/01/18at 08:12; Start 12/01/18 at 09:00 Potassium Chloride (Klor-Con) 40 meq 1X ONCE PO Last administered on 12/01/18at 08:13; Start 12/01/18 at 08:15; Stop 12/01/18 at 08:49; Status DC Active Scripts Active Reported NITROGLYCERIN SubLingual (Nitroglycerin) 0.4 Mg Tab.subl 0.4 Mg SL PRN Q5MIN PRN Multi Vitamin Daily (Multivitamin) 1 Each Tablet 1 Each PO DAILY Lantus Solostar (Insulin Glargine,Hum.rec.anlog) 100 Unit/1 Ml Insuln.pen 48 Unit SQ DAILYWBKFT Aspirin 81 Mg Tab.chew 81 Mg PO DAILY Lasix (Furosemide) 40 Mg Tablet 40 Mg PO PRN PRN Lasix (Furosemide) 40 Mg Tablet 40 Mg PO DAILY Metformin Hcl 1,000 Mg Tablet 1,000 Mg PO BID Levothyroxine Sodium 150 Mcg Tablet 150 Mcg PO DAILYAC Plavix (Clopidogrel Bisulfate) 75 Mg Tablet 75 Mg PO DAILY Sotalol (Sotalol Hcl) 80 Mg Tablet 80 Mg PO BID Vitals/I & O Vital Sign - Last 24 Hours 11/30/18 11/30/18 11/30/18 11/30/18 15:06 16:03 17:31 18:13 Pulse 90 88 86 Resp 24 15 B/P (MAP) 119/81 (94) 117/82 (94) 122/73 Pulse Ox 99 99 O2 Delivery Room Air Room Air Room Air 11/30/18 11/30/18 11/30/18 11/30/18 18:14 19:35 19:35 21:05 Temp 97.9 Pulse 86 81 86 Resp 18 20 B/P (MAP) 122/73 (89) 124/83 (97) 113/74 (87) Pulse Ox 99 98 99 O2 Delivery Room Air Room Air Room Air Room Air 11/30/18 11/30/18 11/30/18 11/30/18 21:13 22:10 23:20 23:20 Temp 98.0 Pulse 86 85 81 Resp 20 20 B/P (MAP) 113/74 118/77 (91) 100/68 (79) Pulse Ox 96 O2 Delivery Room Air Room Air Room Air 12/01/18 12/01/18 12/01/18 12/01/18 00:14 00:15 02:00 02:50 Pulse 93 93 92 87 Resp 20 18 16 B/P (MAP) 108/59 108/59 (75) 110/59 (76) Pulse Ox 96 O2 Delivery Room Air Room Air Room Air 12/01/18 12/01/18 12/01/18 12/01/18 03:50 03:50 05:15 05:45 Temp 97.4 Pulse 85 73 89 Resp 18 14 18 B/P (MAP) 123/80 (94) Pulse Ox 95 O2 Delivery Room Air Room Air Room Air Room Air 12/01/18 12/01/18 12/01/18 12/01/18 05:46 07:57 08:00 08:00 Pulse 89 80 85 Resp 20 B/P (MAP) 123/80 126/70 (88) Pulse Ox 96 O2 Delivery Room Air Room Air 12/01/18 12/01/18 11:00 12:25 Pulse 84 O2 Delivery Room Air Intake and Output 11/30/18 11/30/18 12/01/18 15:00 23:00 07:00 Intake Total 805 ml 865 ml 354 ml Output Total 600 ml 2850 ml 2000 ml Balance 205 ml -1985 ml -1646 ml ELMO KING MD Dec 01, 2018 14:51
--- NOTE | 2018-12-01 22:03 | PN ---
DATE: 12/01/2018 SUBJECTIVE: The patient is resting slightly propped up in bed, in no apparent distress. He is feeling generally better. He has lost about 12 pounds, has been up and about walking without difficulty. No shortness of breath. No orthopnea. PHYSICAL EXAMINATION: GENERAL: When I examined him this afternoon, he looked well and was clearly, in no apparent respiratory distress. No pallor, jaundice, cyanosis or thyromegaly. No jugular venous distention. No limb edema. VITAL SIGNS: His heart rate was 84, blood pressure was 119/69, temperature was 98.5, respiratory rate 20, and oxygen saturation was 98%. HEAD, EYES, EARS, NOSE AND THROAT: Normocephalic, atraumatic. NECK: Supple. HEART: Showed normal first and second heart sounds. No rub or murmur. CHEST: Clear to auscultation. No crepitation or rhonchi. ABDOMEN: Distended, soft, nontender. NEUROLOGIC: He was awake, alert, responding appropriately. All cranial nerves intact. He moves extremities without difficulty, ambulates without assistance or assistive devices. His intake over the last 24 hours was 2000 and output was 5450. LABORATORY DATA: His lab work this morning showed a serum sodium 140, potassium 3.7, chloride 103, bicarbonate 29, anion gap of 8, BUN 18, creatinine 1.1, estimated GFR was 68.5 mL per minute, his glucose 103, calcium was 8.9, and magnesium was 1.9. ASSESSMENT: 1. Acute on chronic decompensated congestive heart failure. 2. Severe mitral regurgitation. 3. Coronary artery disease. 4. Dyslipidemia. PLAN: To continue with furosemide 40 mg once a day, spironolactone 25 mg once a day. He is on Entresto 24/26 mg 1 tablet twice a day, Plavix 75 mg once a day, metoprolol tartrate 12.5 mg every 6 hours. His Primacor infusion was discontinued. RADHIKA CORMIER MD DR: JULISSA/po JOB#: [id number] / [id number]
[2018-12-02 00:38] VITALS: BP 109/79
[2018-12-02 03:30] VITALS: BP 106/72
[2018-12-02] MEDS: METOPROLOL TART IMMED RELEASE 25 MG TABLET PO SCH ×2 (06:47→12:00)
[2018-12-02 07:00] VITALS: BP 104/70
[2018-12-02] MEDS: metFORMIN 500 MG TABLET PO SCH (09:07)
[2018-12-02] MEDS: FUROSEMIDE 40 MG TABLET PO SCH (09:07)
[2018-12-02] MEDS: CLOPIDOGREL BISULFATE 75 MG TABLET PO SCH (09:07)
[2018-12-02] MEDS: SPIRONOLACTONE 25 MG TABLET PO SCH (09:07)
[2018-12-02 09:08] VITALS: BP 104/70
[2018-12-02] MEDS: SACUBITRIL/VALSARTAN 24/26MG TABLET. PO SCH (09:08)
[2018-12-02] MEDS: INSULIN GLARGINE 300 UNITS/3 ML INSULN.PEN. SQ SCH (09:14)
--- NOTE | 2018-12-02 09:15 | PDOC ---
PROGRESS NOTES Assessment 1. Acute on chronic systolic heart failure. LVEF 30-35% on last 2-D echocardiogram. He diuresed well with milrinone for inotropic support and Lasix/metolazone for diuretics. Symptoms and edema have improved significantly. Presently off milrinone infusion and metolazone. Continue Lasix, spironolactone and entresto and change metoprolol to 25 mg twice daily. 2. Severe mitral regurgitation: Plan outpatient evaluation for MVR/clipping procedure 3. CAD s/p PCI/stent to LAD stable and chest pain-free. Continue current secondary prevention measures. 3. Dyslipidemia - intolerance to statins. DC home today and follow-up in 2 weeks. Subjective Feeling much better today. Objective Vital Signs Date Time Temp Pulse Resp B/P (MAP) Pulse Ox O2 Delivery O2 Flow Rate FiO2 12/02/18 09:08 92 104/70 12/02/18 07:54 Room Air 12/02/18 07:00 20 96.0 12/02/18 03:30 96 12/01/18 15:23 98.5 Intake and Output 12/02/18 07:00 Intake Total 1794 ml Output Total 5500 ml Balance -3706 ml Intake Oral 1794 ml Output Urine Total 5500 ml Abdomen: Normal bowel sounds, Soft, No tenderness Heart: Regular rate Extremities: No edema General: Alert, Oriented X3 HEENT: Atraumatic Lungs: Clear to auscultation Neck: Supple Psych/Mental Status: Mood NL Review of Relevant I have reviewed the following items donavan (where applicable) has been applied. Labs Laboratory Tests Test 11/30/18 15:25 12/01/18 05:33 12/01/18 07:47 Sodium Level 141 mmol/L (136-145) 140 mmol/L (136-145) Potassium Level 3.7 mmol/L (3.5-5.1) 3.7 mmol/L (3.5-5.1) Chloride Level 102 mmol/L (98-107) 103 mmol/L (98-107) Carbon Dioxide Level 30 mmol/L (21-32) 29 mmol/L (21-32) Anion Gap 9 (6-14) 8 (6-14) Blood Urea Nitrogen 18 mg/dL (8-26) 18 mg/dL (8-26) Creatinine 1.0 mg/dL (0.7-1.3) 1.1 mg/dL (0.7-1.3) Estimated GFR (Cockcroft-Gault) 76.5 68.5 Glucose Level 136 mg/dL (70-99) 103 mg/dL (70-99) Calcium Level 8.9 mg/dL (8.5-10.1) 8.9 mg/dL (8.5-10.1) Magnesium Level 1.9 mg/dL (1.8-2.4) Glucose (Fingerstick) 116 mg/dL (70-99) Medications Current Medications Metoprolol Tartrate (Lopressor) 12.5 mg Q6HRS PO Last administered on 12/02/18 06:47; Start 11/30/18 at 00:00 Furosemide (Lasix) 40 mg 1X ONCE IVP Last administered on 11/29/18 20:35; Start 11/29/18 at 20:00; Stop 11/29/18 at 20:01; Status DC Metformin HCl (Glucophage) 1,000 mg BIDWMEALS PO Last administered on 12/02/18 09:07; Start 11/30/18 at 08:00 Insulin Glargine (Lantus) 48 units DAILY SQ Last administered on 12/02/18 09:14; Start 11/30/18 at 09:00 Milrinone Lactate/ Dextrose 100 ml @ 13.676 mls/ hr CONT PRN IV SEE I/O RECORD Last administered on 11/30/18 11:41; Start 11/29/18 at 22:00 Clopidogrel Bisulfate (Plavix) 75 mg DAILYWBKFT PO Last administered on 12/02/18at 09:07; Start 11/30/18 at 08:00 Potassium Chloride (Klor-Con) 40 meq 1X ONCE PO Last administered on 11/30/18 08:37; Start 11/30/18 at 07:30; Stop 11/30/18 at 07:32; Status DC Potassium Chloride (Klor-Con) 40 meq 1X ONCE PO Last administered on 11/30/18 08:37; Start 11/30/18 at 08:30; Stop 11/30/18 at 08:38; Status DC Furosemide (Lasix) 40 mg 1X ONCE IVP Last administered on 11/30/18at 12:44; Start 11/30/18 at 12:15; Stop 11/30/18 at 12:16; Status DC Aspirin (Aspirin Enteric Coated) 81 mg 1X ONCE PO Last administered on 11/30/18at 17:31; Start 11/30/18 at 15:45; Stop 11/30/18 at 15:46; Status DC Metolazone (Zaroxolyn) 5 mg DAILY PO Last administered on 11/30/18at 17:30; Start 11/30/18 at 15:45; Stop 12/01/18 at 08:07; Status DC Furosemide (Lasix) 40 mg 1X ONCE IVP Last administered on 11/30/18at 18:10; Start 11/30/18 at 15:45; Stop 11/30/18 at 15:51; Status DC Spironolactone (Aldactone) 25 mg DAILY PO Last administered on 12/02/18at 09:07; Start 12/01/18 at 09:00 Sacubitril/ Valsartan (Entresto 24 Mg-26 Mg) 1 tab BID PO Last administered on 12/02/18at 09:08; Start 11/30/18 at 21:00 Potassium Chloride (Klor-Con) 40 meq 1X ONCE PO Last administered on 11/30/18 18:11; Start 11/30/18 at 18:00; Stop 11/30/18 at 18:01; Status DC Furosemide (Lasix) 40 mg DAILY PO Last administered on 12/02/18 09:07; Start 12/01/18 at 09:00 Potassium Chloride (Klor-Con) 40 meq 1X ONCE PO Last administered on 12/01/18at 08:13; Start 12/01/18 at 08:15; Stop 12/01/18 at 08:49; Status DC Active Scripts Active Reported NITROGLYCERIN SubLingual (Nitroglycerin) 0.4 Mg Tab.subl 0.4 Mg SL PRN Q5MIN PRN Multi Vitamin Daily (Multivitamin) 1 Each Tablet 1 Each PO DAILY Lantus Solostar (Insulin Glargine,Hum.rec.anlog) 100 Unit/1 Ml Insuln.pen 48 Unit SQ DAILYWBKFT Aspirin 81 Mg Tab.chew 81 Mg PO DAILY Lasix (Furosemide) 40 Mg Tablet 40 Mg PO PRN PRN Lasix (Furosemide) 40 Mg Tablet 40 Mg PO DAILY Metformin Hcl 1,000 Mg Tablet 1,000 Mg PO BID Levothyroxine Sodium 150 Mcg Tablet 150 Mcg PO DAILYAC Plavix (Clopidogrel Bisulfate) 75 Mg Tablet 75 Mg PO DAILY Sotalol (Sotalol Hcl) 80 Mg Tablet 80 Mg PO BID Vitals/I & O Vital Sign - Last 24 Hours 12/01/18 12/01/18 12/01/18 12/01/18 11:00 12:25 14:59 15:23 Temp 98.5 Pulse 84 84 Resp 20 B/P (MAP) 119/69 (86) Pulse Ox 98 O2 Delivery Room Air 12/01/18 12/01/18 12/01/18 12/01/18 16:00 17:29 20:00 20:00 Pulse 84 98 Resp 20 B/P (MAP) 116/72 93/58 (70) Pulse Ox 96 O2 Delivery Room Air Room Air 12/01/18 12/01/18 12/01/18 12/02/18 20:38 23:00 23:23 00:30 Pulse 93 88 89 Resp 20 B/P (MAP) 101/62 105/63 (77) 105/63 O2 Delivery Room Air 12/02/18 12/02/18 12/02/18 12/02/18 00:38 03:30 03:30 06:47 Pulse 90 87 87 Resp 20 20 B/P (MAP) 109/79 (89) 106/72 (83) 106/72 Pulse Ox 97 96 O2 Delivery Room Air 12/02/18 12/02/18 12/02/18 07:00 07:54 09:08 Pulse 92 92 Resp 20 B/P (MAP) 104/70 (81) 104/70 O2 Delivery Room Air Room Air O2 Flow Rate 96.0 Intake and Output 12/01/18 12/01/18 12/02/18 15:00 23:00 07:00 Intake Total 834 ml 660 ml 300 ml Output Total 1600 ml 3000 ml 900 ml Balance -766 ml -2340 ml -600 ml ELMO KING MD Dec 02, 2018 09:15
[2018-12-02] MEDS ORDERED: FURO20TA3 PO (18:18)
[2018-12-02] MEDS ORDERED: METO25TA4 PO (18:20)
[2018-12-02] MEDS ORDERED: SPIR25TA5 PO (18:20)
[2018-12-02] MEDS ORDERED: SACU1TAB PO (18:20)
--- NOTE | 2018-12-02 19:15 | DS ---
DATE OF DISCHARGE: 12/02/2018 HOSPITAL COURSE: The patient is a 58-year-old male patient who was admitted as a direct admit from [facility] for acute decompensated heart failure. He apparently has had anterior ST segment elevation myocardial infarction approximately 4 months ago. Since then, he has been having exertional dyspnea to the point where he is having to stop after walking approximately 50 to 100 feet and has severe limitation at work, has reported significant lower extremity edema. He has not had any syncope, but does have orthopnea and paroxysmal nocturnal dyspnea, but denied any palpitation. He was admitted and was started on IV Lasix. His sotalol was discontinued and was started on Entresto and spironolactone as well as metoprolol and spironolactone. He did very well. He started at 268 and today he is 249, feeling generally much better, able to lie flat. His both lower extremity swelling has largely subsided. PHYSICAL EXAMINATION: GENERAL: When I examined him, he looked well and was clearly in no apparent respiratory distress. No pallor, jaundice, cyanosis, or thyromegaly. No jugular venous distention. No lower limb edema. VITAL SIGNS: His heart rate was 78, blood pressure 104/70, temperature was 98, respiratory rate was 20, and oxygen saturation was 96% on room air. HEAD, EYES, EARS, NOSE AND THROAT: Normocephalic, atraumatic. NECK: Supple. HEART: Showed normal first and second sounds. No gallop, rub or murmur. CHEST: Clear to auscultation. No crepitation or rhonchi. ABDOMEN: Distended, soft, nontender. NEUROLOGIC: He is awake, alert, responding appropriately. Cranial nerves intact. He moves extremities without difficulty, ambulates without assistance or assistive devices. His intake over the last 24 hours was 2000, output was 5450. LABORATORY DATA: As of this morning, his serum sodium was 140, potassium was 3.7, chloride 103, bicarbonate 29, anion gap of 8, BUN 18, creatinine 1.1, estimated GFR was 68 mL per minute, his glucose 103, calcium was 8.9, magnesium was 1.9. His serum triglycerides were 81. Total cholesterol 106, LDL cholesterol was 69, VLDL was 16, HDL was 21 and the ratio was 5. DISCHARGE MEDICATIONS: He was discharged home to continue on furosemide 60 mg daily, metoprolol tartrate 25 mg twice a day, Entresto 1 tablet twice a day, spironolactone 25 mg once a day. He should continue also on aspirin 81 mg once a day, Plavix 75 mg once a day, furosemide 40 mg once a day, Lantus insulin 48 units at bedtime daily with breakfast, levothyroxine sodium 150 mcg daily, metformin 1000 mg twice a day, multivitamin 1 tablet once a day and nitroglycerin 0.4 mg sublingually every 5 minutes. FINAL DISCHARGE DIAGNOSES: 1. Acute on chronic systolic heart failure, left ventricular ejection fraction 35% on the last 2D echocardiogram. He diuresed well with milrinone for inotropic support and Lasix and metolazone for diuretics. His symptoms of edema have improved significantly. 2. Severe mitral regurgitation. Plan, outpatient evaluation of mitral valve replacement or clipping procedure. 3. Coronary artery disease, status post PCI with stent deployment to left anterior descending, stable, chest pain free. 4. Dyslipidemia. The patient will be discharged home to follow up with the Cardiology Clinic in 2 weeks' time. RADHIKA CORMIER MD DR: JULISSA/po JOB#: [id number] / [id number]
== END 2018-12-02 18:33 | disposition home or self-care (01) | DRG 293 ==
LOC: ICU 18:30
PROVIDERS: ADMIT Internal Medicine; ATTEND Internal Medicine
DX: I11.0 Hypertensive heart disease with heart failure (principal); I25.5 Ischemic cardiomyopathy; I34.0 Nonrheumatic mitral (valve) insufficiency; I25.2 Old myocardial infarction; E78.5 Hyperlipidemia, unspecified; E03.9 Hypothyroidism, unspecified; I50.43 Acute on chronic combined systolic (congestive) and diastolic (congestive) heart failure; I25.10 Atherosclerotic heart disease of native coronary artery without angina pectoris; Z95.5 Presence of coronary angioplasty implant and graft; Z86.74 Personal history of sudden cardiac arrest; Z90.81 Acquired absence of spleen; Z90.49 Acquired absence of other specified parts of digestive tract; Z80.0 Family history of malignant neoplasm of digestive organs; Z95.2 Presence of prosthetic heart valve; Z88.8 Allergy status to other drugs, medicaments and biological substances; Z82.3 Family history of stroke; Z83.3 Family history of diabetes mellitus; Z82.5 Family history of asthma and other chronic lower respiratory diseases; Z82.49 Family history of ischemic heart disease and other diseases of the circulatory system; Z79.82 Long term (current) use of aspirin; Z86.79 Personal history of other diseases of the circulatory system; Z79.899 Other long term (current) drug therapy
CPT/HCPCS: 36415; 71046; 80048; 80053; 80061; 82803; 82947; 83036; 83735; 83880; 85025; 87641; 93005; J1815; J1940; J2260

== ENCOUNTER → 2019-02-05 | Outpatient (CLI) | payer OTHER ==
[~2019-02-05] MED LIST changes: +ASPI-630 PO; +CLOP75TA57 PO; +FURO-68 PO; +FURO20TA3 PO; +INSU100I13 SQ; +LEVO150T5 PO; +METF10007 PO; +METO25TA4 PO; +MULT-245 PO; +NITR0.4T22 SL; +SACU1TAB PO; +SOTA80TA48 PO; +SPIR25TA5 PO
[2019-02-05 16:33] LABS: CALCIUM 9.3 mg/dL (8.5-10.1); CREATININE 1.4 mg/dL (0.7-1.3); GFR 51.9; MAGNESIUM 2.1 mg/dL (1.8-2.4); POTASSIUM 5.4 mmol/L (3.5-5.1)
== END | disposition home or self-care (01) ==
LOC: LAB 15:51
PROVIDERS: ATTEND Nurse Practitioner Family
DX: I25.5 Ischemic cardiomyopathy (principal)
CPT/HCPCS: 36415; 80048; 83735

== ENCOUNTER → 2019-08-16 | Outpatient (CLI) | payer OTHER ==
[2019-08-16 16:33] LABS: BASO % 1 % (0-3); EOS # 0.1 x10^3/uL (0.0-0.7); EOS % 1 % (0-3); HEMATOCRIT 41.8 % (39.0-53.0); HEMOGLOBIN 14.1 g/dL (13.0-17.5); LYMPH % 41 % (24-48); MEAN CORPUSCULAR HEMOGLOBIN 34 pg (25-35); MEAN CORPUSCULAR HGB CONC 34 g/dL (31-37); MEAN CORPUSCULAR VOLUME 100 fL (79-100); MONO # 0.5 x10^3/uL (0.0-1.1); MONO % 7 % (0-9); NEUT # 3.6 x10^3uL (1.8-7.7); NEUT % 50 % (31-73); PLATELET COUNT 214 x10^3/uL (140-400); RED BLOOD COUNT 4.17 x10^6/uL (4.30-5.70); RED CELL DISTRIBUTION WIDTH 13.6 % (11.5-14.5); WHITE BLOOD COUNT 7.3 x10^3/uL (4.0-11.0)
[2019-08-16 16:45] LABS: ALBUMIN 3.8 g/dL (3.4-5.0); ALBUMIN/GLOBULIN RATIO 0.7 (1.0-1.7); CREATININE 1.1 mg/dL (0.7-1.3); GFR 68.3; POTASSIUM 4.1 mmol/L (3.5-5.1); TOTAL BILIRUBIN 0.4 mg/dL (0.2-1.0); TOTAL PROTEIN 9.1 g/dL (6.4-8.2)
[2019-08-17 02:06] LABS: HEMOGLOBIN A1C 5.9 % (4.8-5.6)
== END | disposition home or self-care (01) ==
LOC: PMG 15:37
PROVIDERS: ATTEND Family Medicine
DX: T81.30XA Disruption of wound, unspecified, initial encounter (principal); I25.5 Ischemic cardiomyopathy; Y84.8 Other medical procedures as the cause of abnormal reaction of the patient, or of later complication, without mention of misadventure at the time of the procedure; Y92.89 Other specified places as the place of occurrence of the external cause; Z79.899 Other long term (current) drug therapy
CPT/HCPCS: 36415; 80053; 83036; 85025; 87040; 87070; 87186

== ENCOUNTER → 2020-04-29 | Outpatient (CLI) | payer OTHER ==
--- NOTE | 2020-04-29 16:26 | RAD ---
Chest radiograph 04/29/2020 3:09 PM INDICATION: 6 weeks back pain. Mid right chest and rib pain COMPARISON: 07/14/2019 TECHNIQUE: Frontal and lateral views of the chest are provided. FINDINGS: The cardiomediastinal silhouette is within normal limits. Left chest wall cardiac device is identified with leads projecting over the right atrium and right ventricle. There are no pleural effusions. There is no pulmonary vascular congestion. There is no pneumothorax. The lungs are clear. There is a inferior endplate compression deformity involving a mid thoracic vertebra with 50 percent height loss. IMPRESSION: No acute cardiopulmonary process. There is an inferior endplate compression deformity involving a mid thoracic vertebra which appears chronic. Electronically signed by: Anna oBrrero MD (04/29/2020 4:23 PM) [id number]
== END | disposition home or self-care (01) ==
LOC: DXRAD 14:58
PROVIDERS: ATTEND Family Medicine
DX: R07.81 Pleurodynia (principal); R07.9 Chest pain, unspecified; M43.8X4 Other specified deforming dorsopathies, thoracic region; G89.29 Other chronic pain
CPT/HCPCS: 71046